=== PATIENT | female | born 1975 | race African-American/Black ===

== ENCOUNTER 2017-12-21 18:18 | Emergency (ER) | payer BC ==
[~2017-12-21] VITALS: Ht 144.8 cm; Wt 56.7 kg
[~2017-12-21 18:18] MED LIST: FLEXERIL PO; IBUPROFEN 600600 M1 PO; MEDROLDOSEPACK PO; NAPROSYN500 MG PO; NORCO 5-325 TA1 EACH PO; NORFLEX100 MG PO; PREDNISONE50 MG PO; PRISTIQ50 MG PO; ULTRAM 50MG TAB50 MG PO
[2017-12-21] MEDS ORDERED: CIPROFLOXIN HC2.5 M1 OPHTHALMIC (19:58)
== END 2017-12-21 20:24 | disposition home or self-care (01) ==
LOC: ER 18:18
DX: H16.002 Unspecified corneal ulcer, left eye (principal); F17.210 Nicotine dependence, cigarettes, uncomplicated; Z88.6 Allergy status to analgesic agent; Z85.3 Personal history of malignant neoplasm of breast; Z98.890 Other specified postprocedural states